=== PATIENT | female | born 1990 | race Asian ===

== ENCOUNTER 2018-09-01 15:36 | Inpatient (IN) ==
[2018-09-01] MEDS ORDERED: ONDANSETRON 4 MG TAB PO PRN (16:42)
--- NOTE | 2018-09-01 19:19 | Ultrasound Report ---
ULTRASOUND LIMITED; BIOPHYSICAL PROFILE CLINICAL HISTORY: Variable decelerations. COMPARISON STUDY: Obstetrical ultrasound dated 08/16/2018. FINDINGS: Real-time, grayscale, and color Doppler sonography of the fetus and gravid uterus is perfor med as part of a biophysical profile assessment. There is a single live intrauterine gestation with a heart rate of 158 bpm. The femoral length measures 7.15 cm, corresponding to an estimated age of 36 weeks 4 days. Positioning is cephalic. The placenta is anterior. The amniotic fluid index measures 6. 3 cm. No movement, tone, or breathing motions were identified during the examination. IMPRESSION: 1. There is a single live uterine gestation with an estimated age of 36 weeks 4 days by femoral lengt h measurement. 2. The biophysical profile score is 2/8. No movement, tone, or breathing motions were identifie d during the examination. 3. Note that this does not constitute a dedicated anatomic scan. Electronically signed by: Rakesh Conley M.D. 09/01/2018 7:18 PM
[2018-09-01] MEDS ORDERED: OXYTOCIN 30 UNITS/500 ML BAG IV PRN ×2 (19:33→19:36)
[2018-09-01] MEDS ORDERED: LACTATED RINGER'S 1,000 ML IV PRN ×3 (19:33→20:42)
[2018-09-01] MEDS ORDERED: PENICILLIN G POTASSIUM 6 MU in DEXTROSE 5% 250 ML IV STA (19:45)
[2018-09-01] MEDS ORDERED: BUPIVACAINE 0.25% 30 ML VIAL ONE (19:48)
[2018-09-01] MEDS ORDERED: ePHEDrine sulfate 50 MG/ML AMP ONE (19:48)
[2018-09-01] MEDS ORDERED: fentaNYL citrate 100 MCG/2 ML VIAL ONE (19:48)
[2018-09-01] MEDS ORDERED: fentaNYL 2MCG/ML ROPIV 1.25MG/ML 100 ML BAG EPI ONE (19:49)
--- NOTE | 2018-09-01 19:51 | History & Physical Report ---
Date of Service September 01, 2018 Assessment & Plan (1) Non-reassuring status: Given bpp of 4/10, have recommended moving forward with induction. They are agreeable. See no reason why we cannot attempt induction. Fetus overall very reassuring fht with spontaneous accels and currently rare variable. Patient and are aware if baby does not tolerate labor, would need to move forward with c/s. Present on Admission?: Yes (2) Gestational diabetes requiring insulin: Plan BS q 1 hour with goal of 80-120. Present on Admission?: Yes (3) with 37 weeks completed gestation: History of Present Illness Chief Complaint: contractions, nausea, diarrhea Primary Care Provider: NO PCP Patient is a 28yoaf with iup at 37 3/7 weeks who presents to labor and delivery complaining of contractions. no vb/lof. Patient notes over the past couple of days she has had increasing contractions. Today they have been associated with nausea and diarrhea. No sick contacts. When questioned on the phone, she noted fm was fine, but on further questioning, she notes decreased movement decreased over the last couple of days. When she presented to labor and delivery the fetus overall looked fairly good but would have an occasional variable, so bpp ordered. Overall nst was reactive. BPP was 2/8 with an jamey of 6.3 but no points for tone, breathing or movement, giving overall bpp of 4/10. Given this and the patient is term, have recommended induction of labor. the patient and her are agreeable. also complicated by insulin requiring GDM diagnosed at 28 weeks. She is a JENNI from [facility] at 35 weeks. there was some concern for suspicion of vsd from US in [facility]. Had MFM consult here--no significant vsd seen, evaluate baby pp. Had cfDNA testing which was low risk. Allergies Allergy/AdvReac Type Severity Reaction Status Date / Time carbamazepine [From Tegretol] Allergy Fever Verified 09/01/18 16:04 Home Medications Home Medications Medication Instructions Recorded Confirmed Type PNV cmb#95-ferrous fumarate-FA PO DAILY 09/01/18 History [] insulin detemir U-100 [Levemir 13 units BID 09/01/18 09/01/18 History FlexTouch U-100 Insuln] Patient History Medical History No known health problems Surgical History H/O eye surgery Social History marital status: Feels Safe at Home: Yes Safety Concerns: Feels Safe At This Time Smoking Status: Never smoker Hx Alcohol Use: No Hx Substance Use: No Preferred Language: [place] OB History g1--11/27, , 7#2oz, in [place], patient notes rapid labor once reached 5cm. 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
[2018-09-01 19:59] LABS: Hematocrit (blood only) 37.8 % (37-47); Hemoglobin 13.8 g/dL (12.0-16.0); Mean Corpuscular Volume 89.8 fL (80-100); Mean Platelet Volume 10.8 fL (7.4-10.4); Platelet Count 161 K/uL (130-400); RDW Coefficient of Variation 13.2 % (11.5-14.5); RDW Standard Deviation 43.1 fL (36.4-46.3); Red Blood Count 4.21 M/uL (4.2-5.4); White Blood Count 8.97 K/uL (4.8-10.8)
[2018-09-01 20:10] LABS: Mean Corpuscular Hgb Conc 36.5 g/dL (32-36)
[2018-09-01] MEDS ORDERED: NALOXONE HCL 1 MG in SODIUM CHLORIDE 0.9% 1000ML 1,000 ML IV PRN (20:42)
[2018-09-01] MEDS ORDERED: ePHEDrine sulfate 50 MG/ML AMP IV PRN (20:42)
[2018-09-01] MEDS ORDERED: NALOXONE HCL 0.4 MG/1 ML VIAL/CARP IV PRN (20:42)
[2018-09-01] MEDS ORDERED: NALBUPHINE HCL INJ 10 MG/ML AMP IV PRN (20:42)
[2018-09-01] MEDS ORDERED: DiphenhydrAMINE HCL 50 MG/ML VIAL IV PRN (20:42)
[2018-09-01] MEDS: LACTATED RINGER'S 1,000 ML IV SCH (20:45)
--- NOTE | 2018-09-01 20:48 | Anesthesiology Consultation ---
Date of Service September 01, 2018 Assessment & Plan (1) Encounter for pre-operative examination: Chart Review Chart Review: Patient NOT seen in Pre Admission Testing and Acceptable Risk for Labor Epidural Consults Requested none History Height/Weight Height: 5 ft 7 in Weight: 79.435 kg Allergies Allergy/AdvReac Type Severity Reaction Status Date / Time carbamazepine [From Tegretol] Allergy Fever Verified 09/01/18 16:04 Medications Home Medications Medication Instructions Recorded Confirmed Last Taken PNV cmb#95-ferrous fumarate-FA PO DAILY 09/01/18 08/31/18 08:00 [] insulin detemir U-100 [Levemir 13 units BID 09/01/18 09/01/18 08/31/18 20:00 FlexTouch U-100 Insuln] Active Medications Generic Name Dose Route Start Last Admin Trade Name Freq PRN Reason Stop Dose Admin Lactated Ringer's 1,000 mls @ 999 mls/hr 09/01/18 19:33 09/01/18 19:47 Lr IV 10/01/18 19:32 999 mls/hr .Q1H1M PRN Administration (Pre-Anesthesia) Ondansetron HCl 4 mg 09/01/18 16:42 09/01/18 17:14 Zofran PO 10/01/18 16:41 4 mg Q4H PRN Administration Nausea Past Medical History Medical History No known health problems Past Surgical History Surgical History H/O eye surgery Past Anesthesia History No Hx of Anesthesia Complications and No Family Hx of Anesthesia Complications History of PONV No Motion Sickness Screening History of Motion Sickness: No Social History Smoking Status: Never smoker Hx Alcohol Use: No Hx Substance Use: No Exercise / Class Metabolic Activity II 4-5 Yardwork/Stairs/Walk up hill Physical Exam Vital Signs Last Vital Signs Temp 37.3 C 09/01/18 20:00 Pulse 109 H 09/01/18 21:01 Resp 20 09/01/18 20:00 BP 120/70 09/01/18 21:01 Pulse Ox 96 09/01/18 20:58 Testing Laboratory Results 09/01/18 19:47 09/01/18 19:44 POC Glucose 84
--- NOTE | 2018-09-01 21:43 | Labor Progress Brief Note ---
Date of Service September 01, 2018 Subjective comfortable after epidural Assessment & Plan (1) with 37 weeks completed gestation: fetus very reassuring category two with accels and scalp stim. (2) Gestational diabetes requiring insulin: bs 144 after epidural. will restart in one hour. if still elevated, plan insulin protocol. (3) Non-reassuring status: bpp 4/10, reassuring now. continue with induction. Hope that arom will be enough, if not plan to augment with pitocin. Physical Exam 2 Vital Signs (Past 24 Hours): Last Vital Signs Temp 37.3 C 09/01/18 20:00 Pulse 120 H 09/01/18 21:38 Resp 20 09/01/18 20:00 BP 127/81 09/01/18 21:38 Pulse Ox 100 09/01/18 21:38 Constitutional: WD/WN, vitals as above Genitourinary: cx--3/80/-2 arom--clear toco--q2-4min efm--130s wtih mod variability, accels to 150s, rare variable
[2018-09-01] MEDS: PENICILLIN G POTASSIUM 3 MU in DEXTROSE 5% 100 ML IV PRN (23:47)
[2018-09-02] MEDS: ACETAMINOPHEN 325 MG TAB PO PRN ×3 (00:47→20:02)
[2018-09-02] MEDS: AMPICILLIN 2,000 MG in SODIUM CHLOR 0.9% AD-VAN 100 ML IV SCH ×4 (00:50→19:39)
[2018-09-02] MEDS: GENTAMICIN SULFATE 60 MG in DEXTROSE 5% 100 ML IV SCH ×3 (01:30→18:12)
--- NOTE | 2018-09-02 03:18 | Labor Progress Brief Note ---
Date of Service September 02, 2018 Subjective comfortable. Patient admits she thinks she had a cold coming into labor and delivery today. Assessment & Plan (1) with 37 weeks completed gestation: (2) Gestational diabetes requiring insulin: blood sugars within range (3) Non-reassuring status: fetus category 2 secondary to variables but overall reassuring with spont accels. continue pitocin augmentation. Hopefully on the verge of active labor as some cervical change noted at this exam. Physical Exam 2 Vital Signs (Past 24 Hours): Last Vital Signs Temp 38.2 C H 09/02/18 02:45 Pulse 113 H 09/02/18 03:13 Resp 16 09/02/18 02:45 BP 122/69 09/02/18 03:04 Pulse Ox 96 09/02/18 03:13 Constitutional: WD/WN, vitals as above Genitourinary: cx--4/80/-2 toco--q2-4min, pit at 7 efm--150s wtih mod variability, spon accels to 170s, occasional variable
[2018-09-02] MEDS: PENICILLIN G POTASSIUM 3 MU in DEXTROSE 5% 100 ML IV PRN (03:48)
--- NOTE | 2018-09-02 06:34 | Labor Progress Brief Note ---
Date of Service September 02, 2018 Subjective comfortable, noting some pressure Assessment & Plan (1) Gestational diabetes requiring insulin: sugars meeting goals (2) Non-reassuring status: made good change. fetus category two with variables but overall still with good variability and accels. suspect nuchal cord. hopefully will move more rapidly now. anticipate . Physical Exam 2 Vital Signs (Past 24 Hours): Last Vital Signs Temp 37.9 C H 09/02/18 06:15 Pulse 104 H 09/02/18 06:28 Resp 16 09/02/18 06:15 BP 130/81 09/02/18 06:19 Pulse Ox 100 09/02/18 06:28 Constitutional: WD/WN, vitals as above Genitourinary: cx--6//-2 efm--150s with mod variability, +accels, variables with contractions toco--q2-3, pit at 12
[2018-09-02] MEDS: LACTATED RINGER'S 1,000 ML IV SCH (07:01)
[2018-09-02] MEDS: fentaNYL 2MCG/ML ROPIV 1.25MG/ML 100 ML BAG EPI PRN ×2 (07:10→07:31)
[2018-09-02] MEDS ORDERED: BISACODYL 10 MG SUPP PR PRN (07:57)
[2018-09-02] MEDS ORDERED: BENZOCAINE 20% AER SPR 82.5 GM CAN EXT PRN (07:57)
[2018-09-02] MEDS ORDERED: OXYCODONE/ACETAMINOPHEN 5mg/325mg TAB PO PRN (07:57)
[2018-09-02] MEDS ORDERED: DIPHTHERIA/TETANUS/PERTUSSIS 0.5 ML SYR/VIAL IM ONE (07:57)
[2018-09-02] MEDS ORDERED: SUPERCREAM 0.870% 15 GM JAR EXT PRN (07:57)
[2018-09-02] MEDS ORDERED: HYDROCORTISONE ACETATE 25 MG SUPP PR PRN (07:57)
[2018-09-02] MEDS ORDERED: ACETAMINOPHEN 325 MG TAB PO PRN (07:57)
--- NOTE | 2018-09-02 08:03 | Procedure Note ---
Vaginal Delivery Summary Date of Service September 02, 2018 Supervising Physician Co-Signing Physician Notes Patient pushed to deliver a viable and vigorous male infant in OA position. A loop of cord was found alongside the infant's neck but not wrapped around it. The shoulders and body delivered with no difficulty. The infant was placed on the maternal abdomen and cord was doubly clamped then cut by FOB. Placenta delivered S/I/3VC. Second degree tear repaired with 3-0 Vicryl in usual manner. Lochia minimal and fundus firm at end of procedure.
--- NOTE | 2018-09-02 08:58 | Anesthesia Procedure Note ---
Date of Service September 02, 2018 Anesthesia Post Epidural Note Vital Signs Vital Signs: Temp Pulse Resp BP Pulse Ox 09/02/18 08:50 99 H 128/75 09/02/18 08:35 101 H 125/72 09/02/18 08:20 100 H 133/75 09/02/18 08:05 113 H 131/73 09/02/18 07:50 107 H 123/65 100 09/02/18 07:45 112 H 113/79 100 09/02/18 07:40 122 H 123/77 09/02/18 07:38 123 H 82 L 09/02/18 07:37 116 H 91 09/02/18 07:35 125 H 127/70 09/02/18 07:33 127 H 100 09/02/18 07:28 119 H 99 09/02/18 07:23 112 H 100 09/02/18 07:19 114 H 131/79 09/02/18 07:18 106 H 99 09/02/18 07:13 109 H 100 09/02/18 07:08 115 H 100 09/02/18 07:05 38.5 C H 114 H 20 127/81 09/02/18 07:03 105 H 100 09/02/18 06:58 106 H 100 09/02/18 06:53 110 H 100 09/02/18 06:48 108 H 131/86 100 09/02/18 06:43 102 H 100 09/02/18 06:38 103 H 100 09/02/18 06:34 105 H 129/86 09/02/18 06:33 103 H 100 09/02/18 06:30 18 09/02/18 06:28 104 H 100 09/02/18 06:23 100 H 100 09/02/18 06:19 106 H 130/81 09/02/18 06:18 100 H 100 09/02/18 06:15 37.9 C H 16 09/02/18 06:13 100 H 99 09/02/18 06:08 97 H 99 09/02/18 06:04 93 H 124/78 09/02/18 06:03 95 H 98 09/02/18 05:58 100 H 98 09/02/18 05:53 102 H 99 09/02/18 05:49 109 H 129/78 09/02/18 05:48 101 H 99 09/02/18 05:43 120 H 98 09/02/18 05:38 109 H 98 09/02/18 05:34 107 H 119/76 09/02/18 05:33 95 H 98 09/02/18 05:30 18 09/02/18 05:28 105 H 97 09/02/18 05:23 100 H 97 09/02/18 05:18 95 H 112/62 95 09/02/18 05:15 37.4 C 18 09/02/18 05:13 96 H 95 09/02/18 05:08 101 H 95 09/02/18 05:04 101 H 114/62 93 09/02/18 05:03 97 H 95 09/02/18 04:58 96 H 95 09/02/18 04:53 107 H 96 09/02/18 04:48 108 H 107/56 L 96 09/02/18 04:45 97 H 94 09/02/18 04:43 105 H 96 09/02/18 04:38 109 H 96 09/02/18 04:35 92 H 94 09/02/18 04:33 106 H 101/53 L 95 09/02/18 04:30 94 H 94 09/02/18 04:28 115 H 96 09/02/18 04:24 96 H 94 09/02/18 04:23 121 H 96 09/02/18 04:18 117 H 111/56 L 95 09/02/18 04:17 109 H 93 09/02/18 04:15 37.6 C H 16 09/02/18 04:13 118 H 96 09/02/18 04:08 105 H 95 09/02/18 04:07 104 H 93 09/02/18 04:03 109 H 113/59 L 93 09/02/18 04:02 97 H 94 09/02/18 03:58 107 H 94 09/02/18 03:56 104 H 94 09/02/18 03:53 109 H 94 09/02/18 03:49 104 H 94 09/02/18 03:48 117 H 100/57 L 95 09/02/18 03:44 110 H 94 09/02/18 03:43 119 H 95 09/02/18 03:38 105 H 95 09/02/18 03:33 110 H 110/53 L 94 09/02/18 03:28 117 H 96 09/02/18 03:27 107 H 94 09/02/18 03:23 105 H 95 09/02/18 03:21 99 H 94 09/02/18 03:19 115 H 112/56 L 09/02/18 03:18 117 H 96 09/02/18 03:15 18 09/02/18 03:13 113 H 96 09/02/18 03:08 109 H 96 09/02/18 03:04 108 H 122/69 94 09/02/18 03:03 115 H 95 09/02/18 02:59 106 H 94 09/02/18 02:58 111 H 96 09/02/18 02:53 109 H 97 09/02/18 02:48 103 H 126/73 97 09/02/18 02:45 38.2 C H 16 09/02/18 02:43 115 H 96 09/02/18 02:41 102 H 94 09/02/18 02:38 110 H 96 09/02/18 02:33 110 H 116/64 96 09/02/18 02:32 107 H 94 09/02/18 02:28 102 H 96 09/02/18 02:23 110 H 96 09/02/18 02:19 108 H 125/69 09/02/18 02:18 108 H 97 09/02/18 02:15 16 09/02/18 02:13 101 H 96 09/02/18 02:08 106 H 96 09/02/18 02:03 110 H 122/70 97 09/02/18 01:58 105 H 98 09/02/18 01:53 112 H 97 09/02/18 01:50 113 H 116/67 09/02/18 01:48 96 H 98 09/02/18 01:45 38.4 C H 18 09/02/18 01:43 115 H 97 09/02/18 01:38 127 H 98 09/02/18 01:33 112 H 123/74 96 09/02/18 01:30 18 09/02/18 01:28 114 H 97 09/02/18 01:23 113 H 97 09/02/18 01:18 112 H 120/72 97 09/02/18 01:15 18 09/02/18 01:13 120 H 97 09/02/18 01:08 111 H 97 09/02/18 01:04 114 H 120/74 09/02/18 01:03 108 H 97 09/02/18 00:58 115 H 98 09/02/18 00:53 113 H 99 09/02/18 00:48 125 H 122/86 99 09/02/18 00:43 116 H 98 09/02/18 00:38 128 H 98 09/02/18 00:33 115 H 119/74 99 09/02/18 00:30 18 09/02/18 00:28 111 H 100 09/02/18 00:23 114 H 119/73 100 09/02/18 00:22 38.6 C H 09/02/18 00:18 111 H 114/72 100 09/02/18 00:15 18 09/02/18 00:13 110 H 100 09/02/18 00:08 110 H 99 09/02/18 00:03 112 H 119/71 98 09/02/18 00:00 18 09/01/18 23:58 107 H 99 09/01/18 23:53 105 H 100 09/01/18 23:50 116 H 119/73 09/01/18 23:48 107 H 100 09/01/18 23:43 103 H 100 09/01/18 23:38 111 H 99 09/01/18 23:33 108 H 118/72 100 09/01/18 23:30 18 09/01/18 23:28 103 H 100 09/01/18 23:23 102 H 100 09/01/18 23:18 108 H 114/73 99 09/01/18 23:15 37.6 C H 18 09/01/18 23:13 106 H 100 09/01/18 23:08 109 H 98 09/01/18 23:04 102 H 120/77 09/01/18 23:03 103 H 120/77 100 09/01/18 23:00 20 09/01/18 22:58 109 H 100 09/01/18 22:53 106 H 99 09/01/18 22:48 111 H 116/75 99 09/01/18 22:43 104 H 99 09/01/18 22:38 100 H 100 09/01/18 22:34 105 H 120/78 09/01/18 22:33 103 H 99 09/01/18 22:30 37.3 C 20 09/01/18 22:28 95 H 98 09/01/18 22:23 97 H 98 09/01/18 22:18 100 H 100 09/01/18 22:13 111 H 100 09/01/18 22:08 111 H 121/76 99 09/01/18 22:03 93 H 100 09/01/18 22:00 20 09/01/18 21:58 116 H 115/74 100 09/01/18 21:53 120 H 100 09/01/18 21:48 114 H 114/72 100 09/01/18 21:43 96 H 100 09/01/18 21:38 120 H 127/81 100 09/01/18 21:33 115 H 100 09/01/18 21:30 20 09/01/18 21:28 112 H 122/77 98 09/01/18 21:23 98 H 100 09/01/18 21:18 124 H 98 09/01/18 21:17 100 H 117/69 09/01/18 21:15 116 H 116/75 09/01/18 21:13 105 H 117/67 100 09/01/18 21:11 122 H 115/71 09/01/18 21:09 115 H 118/75 09/01/18 21:08 116 H 100 09/01/18 21:07 107 H 117/71 09/01/18 21:05 115 H 118/72 09/01/18 21:03 108 H 113/64 100 09/01/18 21:01 109 H 120/70 09/01/18 20:58 103 H 119/74 96 09/01/18 20:53 111 H 124/70 100 09/01/18 20:49 109 H 92 09/01/18 20:48 118 H 99 09/01/18 20:43 103 H 100 09/01/18 20:38 107 H 100 09/01/18 20:33 115 H 100 09/01/18 20:28 106 H 99 09/01/18 20:24 95 H 126/78 09/01/18 20:23 114 H 99 09/01/18 20:00 37.3 C 20 09/01/18 19:30 20 09/01/18 19:15 37.2 C 09/01/18 19:12 122 H 128/90 09/01/18 17:30 20 09/01/18 17:00 20 09/01/18 16:30 20 09/01/18 16:01 96 H 123/73 09/01/18 16:00 37 C 20 Pain Intensity Bilateral Abdomen: Pain Intensity: 1 Notes Mental Status: alert / awake / arousable and participated in evaluation Nausea / Vomiting: adequately controlled Pain: adequately controlled Airway Patency, RR, SpO2: stable & adequate BP & HR: stable & adequate Hydration State: stable & adequate Neuraxial Anesthesia: was administered and sensory block is resolving Anesthetic Complications: no major complications apparent and Pt Satisfied with anesthetic care Epidural: Removed without complications and With tip intact
[2018-09-02] MEDS: IBUPROFEN 600 MG TAB PO PRN ×3 (10:27→18:11)
[2018-09-02] MEDS: DOCUSATE SODIUM 100 MG CAP PO SCH (20:03)
[2018-09-03] MEDS: AMPICILLIN 2,000 MG in SODIUM CHLOR 0.9% AD-VAN 100 ML IV SCH ×2 (01:06→06:32)
[2018-09-03] MEDS: IBUPROFEN 600 MG TAB PO PRN ×4 (01:07→17:50)
[2018-09-03] MEDS: GENTAMICIN SULFATE 60 MG in DEXTROSE 5% 100 ML IV SCH (02:41)
[2018-09-03 06:09] LABS: Basophils # (auto) 0.01 K/uL (0-0.2); Basophils % (auto) 0.1 %; Eosinophils # (auto) 0.13 K/uL (0-0.5); Eosinophils % (auto) 1.4 %; Hematocrit (blood only) 32.8 % (37-47); Hemoglobin 11.2 g/dL (12.0-16.0); Immature Granulocytes # (auto) 0.03 K/uL (0.00-0.02); Immature Granulocytes % (auto) 0.3 %; Lymphocytes # (auto) 1.37 K/uL (1.2-3.4); Lymphocytes % (auto) 15.1 %; Mean Corpuscular Volume 89.6 fL (80-100); Mean Platelet Volume 10.7 fL (7.4-10.4); Monocytes # (auto) 1.04 K/uL (0.11-0.59); Monocytes % (auto) 11.4 %; Neutrophils # (auto) 6.51 K/uL (1.4-6.5); Neutrophils % (auto) 71.7 %; Platelet Count 138 K/uL (130-400); RDW Coefficient of Variation 13.4 % (11.5-14.5); RDW Standard Deviation 43.4 fL (36.4-46.3); Red Blood Count 3.66 M/uL (4.2-5.4); White Blood Count 9.09 K/uL (4.8-10.8)
[2018-09-03 06:33] LABS: Mean Corpuscular Hgb Conc 34.1 g/dL (32-36)
--- NOTE | 2018-09-03 06:33 | Obstetrical Progress Note ---
Date of Service <Armani Jensen MD - Last Filed: 09/03/18 06:39> September 03, 2018 Assessment & Plan <Armani Jensen MD - Last Filed: 09/03/18 06:39> (1) (spontaneous vaginal delivery): Ms Adeline Goodman is a 28 year old who is day 1 s/p Patient's vitals reviewed; She has been afebrile since yesterday morning and her bp is 96/64 but with no hypotensive symptoms. Her temp today was measured at 34.7 but she reports no symptoms or discomfort GBS +, Blood type A+, Rubella Immune Exam normal Breast feeding has been a struggle Encouraged to continue with today Ambulating without difficulty, Encouraged to continue today Subjective <Armani Jensen MD - Last Filed: 09/03/18 06:39> Ambulation: ambulating normally Voiding: no voiding problems Passing Gas:: Yes Diet Tolerance:: regular diet Lochia:: Small Feeding Type:: breast feeding Current Pain Level(1-10): 0 Patient feeling well this morning, endorses no pain at rest. She was febrile yesterday and placed on ampicillin and gentamicin. She has been afebrile since yesterday morning. She reports that she is breast feeding, but having trouble getting the baby to latch. She will continue to work with . Constitutional: no fever, no chills, no sweats, no malaise and no weakness Respiratory: no cough and no dyspnea Cardiovascular: no chest pain, no dyspnea and no palpitations Gastrointestinal: no abdominal pain, no nausea and no vomiting Physical Exam <Armani Jensen MD - Last Filed: 09/03/18 06:39> Vital Signs (Past 24 Hours) Last Vital Signs Temp 34.7 C L 09/03/18 06:26 Pulse 67 09/03/18 04:45 Resp 16 09/03/18 04:45 BP 96/64 L 09/03/18 04:45 Pulse Ox 98 09/03/18 04:45 Constitutional well developed, well nourished, cooperative and comfortable; no acute distress Respiratory normal respiratory effort, lungs clear to auscultation Cardiovascular Rate/Rhythm: regular rate and regular rhythm Heart Sounds: + murmur; no click, no gallop and no cardiac rub Extremities: no calf tenderness Genitourinary OB Exam Abdomen: + fundal height Fundus: + firm and + relation to umbilicus ( Just below); not tender <Anika Desai MD - Last Filed: 09/03/18 08:07> Co-Signing Physician Notes Laboratory Results - last 24 hr 09/01/18 09/02/18 09/03/18 20:26 11:48 05:55 WBC 9.09 RBC 3.66 L Hgb 11.2 L Hct 32.8 L MCV 89.6 MCH 30.6 MCHC 34.1 RDW Std Deviation 43.4 RDW Coeff of Darrell 13.4 Plt Count 138 MPV 10.7 H Immature Gran % (Auto) 0.3 Neut % (Auto) 71.7 Lymph % (Auto) 15.1 [place] % (Auto) 11.4 Eos % (Auto) 1.4 Baso % (Auto) 0.1 Immature Gran # (Auto) 0.03 H Neut # (Auto) 6.51 H Lymph # (Auto) 1.37 [place] # (Auto) 1.04 H Eos # (Auto) 0.13 Baso # (Auto) 0.01 RPR Nonreactive HIV 1&2 Ab/P24 Ag 4thGn Neg Patient examined. She has been noted to have a temperature that is low overnight, unable to register orally or axillary and has therefore been being taken rectally, and is persistently in the 34-C range (94F). Remaining vitals are stable in a low-normal range, which is believed to be this patient's baseline. She feels warm / normal to the touch on her skin. She does not subjectively note being feverish or chilled. In fact, she feels well, and states she no longer feels the chills that she had yesterday while febrile; she feels "much better." WBC are normal today. Given all of the above I will discontinue her antibiotics and see what her temperature does today. Clinically she is well so we will observe and provide routine care. Resident Activity Tracking <Armani Jensen MD - Last Filed: 09/03/18 06:39> Resident Involvement: Resident Care Provided Care Provided: OB Delivery
[2018-09-03] MEDS: PRENATAL VITAMIN 1 TAB PO SCH ×2 (09:17→10:18)
[2018-09-03] MEDS: DOCUSATE SODIUM 100 MG CAP PO SCH ×3 (09:17→20:00)
[2018-09-03] MEDS ORDERED: BISACODYL 5 MG TABEC PO SCH (20:00)
[2018-09-04] MEDS: IBUPROFEN 600 MG TAB PO PRN ×3 (01:06→20:30)
--- NOTE | 2018-09-04 06:57 | Obstetrical Progress Note ---
Date of Service <Armani Jensen MD - Last Filed: 09/04/18 06:57> September 04, 2018 Assessment & Plan <Armani Jensen MD - Last Filed: 09/04/18 06:57> (1) (spontaneous vaginal delivery): Ms Adeline Goodman is a 28 year old who is day 2 s/p Patient's vitals reviewed; Her temp yesterday was measured at 34.7 but she reported no symptoms or discomfort and today she is up to 36.4. all other vitals WNL at this time. GBS +, Blood type A+, Rubella Immune Exam normal Breast feeding improved today Ambulating without difficulty Discussed d/c instructions no questions at this time. Subjective <Armani Jensen MD - Last Filed: 09/04/18 06:57> Ambulation: ambulating normally Voiding: no voiding problems Passing Gas:: Yes Diet Tolerance:: regular diet Lochia:: Small Feeding Type:: breast feeding Ms. Goodman is resting comfortably this morning breast feeding her beautiful baby. She continues to feel well, and though her temperatures were abnormal yesterday she has not felt any fever like symptoms or chills. She does endorse diarrhea which she had been experiencing since before delivery. She reports up to ten episodes overnight. No other issues at this time. Constitutional: no fever, no chills, no sweats, no body aches, no fatigue, no malaise and no weakness Respiratory: no cough and no dyspnea Cardiovascular: no chest pain and no dyspnea Gastrointestinal: + diarrhea/loose stools; no nausea, no vomiting and no constipation Physical Exam <Armani Jensen MD - Last Filed: 09/04/18 06:57> Vital Signs (Past 24 Hours) Last Vital Signs Temp 36.4 C L 09/04/18 01:10 Pulse 65 09/04/18 01:10 Resp 18 09/04/18 01:10 BP 104/71 09/04/18 01:10 Pulse Ox 99 09/03/18 16:30 Constitutional well developed, well nourished, cooperative and comfortable; no acute distress Respiratory normal respiratory effort, lungs clear to auscultation Cardiovascular Rate/Rhythm: regular rate and regular rhythm Heart Sounds: + murmur; no click, no gallop and no cardiac rub Extremities: no calf tenderness Genitourinary OB Exam Abdomen: + fundal height Fundus: + firm and + relation to umbilicus (1 cm below); not tender <Shea Larry MD, FACOG - Last Filed: 09/04/18 08:12> Co-Signing Physician Notes Resident Physician Supervision Note: I was present with Dr. Jensen during the history and exam. I discussed the case with the resident and agree with the findings and plan as documented in the note. Any exceptions or clarifications are listed here: [None] Documented By: Shea Larry MD, FACOG
[2018-09-04] MEDS: PRENATAL VITAMIN 1 TAB PO SCH (08:37)
[2018-09-04] MEDS: DOCUSATE SODIUM 100 MG CAP PO SCH ×2 (08:39→20:35)
--- NOTE | 2018-09-04 13:42 | Obstetrical Progress Note ---
Date of Service September 04, 2018 Assessment & Plan (1) C. difficile colitis: discussed with pt rec formal consult with dr. singleton for management. I spoke to him and I will write for vanco, contact precautions and diet to full liquid. i will cancel d/c as would be best to see her response to trt with less bms based on my prior conversation with hospitalist. Subjective informed pt she is c. diff positive. and that i spoken to hospitalist about her. as it turns out she has already had 4 bouts of voluminous diarrhea today. her sx began on sunday when she had about 10 episodes in 24hrs and then came in sunday and was in labor and thought to have a gi virus, she did get amp/gent x 1 in labor when she had a temp spike but no further abx. had 10 bouts of diarrhea in 24hr yesterday. now so far today 4 episodes. baby does need to stay here overnight. when i spoke to Dr. singleton about this pt case he felt that >5 episodes might need more inpt initiation of mgmt. Of note, she states her father in law with whom she lives with, has had diarrhea as well but her spouse indicates to me that he is feeling better. Physical Exam 2 Vital Signs (Past 24 Hours): Last Vital Signs Temp 36.3 C L 09/04/18 12:30 Pulse 67 09/04/18 12:30 Resp 18 09/04/18 12:30 BP 113/69 09/04/18 12:30 Pulse Ox 99 09/04/18 12:30
[2018-09-04] MEDS: RASPBERRY SYRUP 5 ML UDP PO SCH ×2 (14:51→20:31)
[2018-09-04] MEDS: VANCOMYCIN HCL 125 MG/2.5ML SOLN PO SCH ×2 (14:51→20:31)
--- NOTE | 2018-09-04 15:20 | Consultation ---
Date of Consultation September 04, 2018 Assessment & Plan (1) C. difficile colitis: C.diff positive stool - vancomycin for 10 days total 125 mg po qid - I did send this script in for the patient and she will go home with a 24 hour homepack from our pharmacy as her pharmacy will not have it in stock until tomorrow I spent time answering questions to educate patient and her about C.diff. I did recommend she take her daughter to her word processing supervisor to be tested if she is having diarrhea. The patient is breast feeding. According to LACT[employer] in the NIH database, vancomycin oral does not require special precautions for breast feeding mothers , though there is limited evidence. Oral vancomycin has very little systemic absorption. What little might make it to the breast milk will be unlikely to be absorbed into the baby's blood stream or cause any adverse effects in breast fed infants. I did discuss this with the patient and encouraged her to discuss with Dr. Carrasquillo taking this medication while breast feeding. Thank you for involving us in the care of this patient. Please let us know if we can be of further assistance in the future. Supervising Physician Co-Signing Physician Notes ROD BUSTER Physician Supervision Note: I discussed with Maggie Solis NP and agree with findings and plan as documented in the note. Any exceptions or clarifications are listed here: None Patient was seen and independently examined she is coming by her . She is having no real new complaints or problems having been recently diagnosed with 's Clostridium difficile. I did personally speak to the cardiology clinical nurse specialist at [facility] and she did agree that vancomycin is safe for a breast-feeding mother. Patient will be discharged home on vancomycin for 14-day therapy she was instructed both by myself and Ms. Schroeder regarding good hygiene and cleaning of her home to prevent spread to other family members Documented By: Jose Egan History of Present Illness Reason for Consultation: C.diff Requesting Physician: Dr. Carrasquillo Attending Physician: Pamela Strickland MD, FACOG History of Present Illness Ms. Goodman is 2 days post vaginal delivery of her baby boy. She developed diarrhea after she started going into labor but before getting to the hospital and has been having around 4 stools a day since then. She reports that her daughter and her father in law have also had some diarrhea. She recently started a course of penicillin for vaginal group B beta strep. She denies any other systemic symptoms. She is eating and drinking well. History of gestational diabetes and bipolar (no longer being treated for this). Allergies Allergy/AdvReac Type Severity Reaction Status Date / Time carbamazepine [From Tegretol] Allergy Fever Verified 09/01/18 16:04 Home Medications Home Medications Medication Instructions Recorded Confirmed Type PNV cmb#95-ferrous fumarate-FA PO DAILY 09/01/18 History [] insulin detemir U-100 [Levemir 13 units BID 09/01/18 09/01/18 History FlexTouch U-100 Insuln] vancomycin 125 mg PO Q6H 9 Days #36 cap 09/04/18 Rx Patient History Medical History No known health problems Surgical History H/O eye surgery Family History Other Family history non-contributory Social History marital status: Current Living Situation: Spouse and Family Other Information That Helps Us Care for You: No Feels Safe at Home: Yes Safety Concerns: Feels Safe At This Time Smoking Status: Never smoker Hx Alcohol Use: No Hx Substance Use: No Beliefs That Will Affect Care: None Preferred Language: Bahamian Review of Systems All other systems reviewed and negative Physical Exam 2 Vital Signs (Past 24 Hours): Last Vital Signs Temp 36.3 C L 09/04/18 12:30 Pulse 67 09/04/18 12:30 Resp 18 09/04/18 12:30 BP 113/69 09/04/18 12:30 Pulse Ox 99 09/04/18 12:30 Physical Exam: General: no distress Eyes: normal inspection, PERLL Respiratory: chest non tender, clear to auscultation, normal breath sounds, no respiratory distress, no accessory muscle use Cardiac: regular rate and rhythm, no rub or gallop, no murmur, no edema, no jvd GI/: active bowel sounds, no abd pain or tenderness, soft Extremities: normal range of motion, normal strength, non tender Neuro/Psych: alert and oriented x 3, normal mood and affect Skin: normal color, dry Results & Data Laboratory Results Abnormal lab results 09/04/18 Range/Units 09:20 Stl C. diff Tox B Gene Pos C.diff Toxin B A* (Neg)
[2018-09-04] MEDS ORDERED: RASPBERRY SYRUP 5 ML UDP PO SCH (15:30)
[2018-09-04] MEDS ORDERED: VANCOMYCIN HCL 125 MG/2.5ML SOLN PO SCH ×2 (15:30→18:00)
[2018-09-05 04:00] LABS: Chlamydia Trach RNA NOT DETECTED (NOT DETECTED); GC (Neis gonorrhoeae) RNA NOT DETECTED (NOT DETECTED)
== END 2018-09-04 22:00 | disposition home or self-care (01) | DRG 806 ==
LOC: OPB 15:36 → 4S1 15:39 → 4S2 09-02 12:24
DX: O24.424 Gestational diabetes mellitus in childbirth, insulin controlled; O36.8130 Decreased fetal movements, third trimester, not applicable or unspecified; Z37.0 Single live birth; Z3A.37 37 weeks gestation of pregnancy; Z22.330 Carrier of Group B streptococcus; O76 Abnormality in fetal heart rate and rhythm complicating labor and delivery; O98.82 Other maternal infectious and parasitic diseases complicating childbirth; O70.1 Second degree perineal laceration during delivery; Z88.8 Allergy status to other drugs, medicaments and biological substances; A04.72 Enterocolitis due to Clostridium difficile, not specified as recurrent; O36.8990 Maternal care for other specified fetal problems, unspecified trimester, not applicable or unspecified; O28.3 Abnormal ultrasonic finding on antenatal screening of mother